=== PATIENT | male | born 1935 | race Caucasian/White ===

== ENCOUNTER 2020-02-04 10:05 | Inpatient (IN) | payer MEDICARE, MEDICAID ==
[~2020-02-04] VITALS: Ht 182.9 cm; Wt 66.2 kg
[~2020-02-04 10:05] MED LIST: ALBU90AE INH; DILT60TA35 PO; HYDR-4135 MT; INSU100I28 SQ; LEVO500T2 PO; RISP05 MT
[2020-02-04] MEDS ORDERED: DEXTROSE 50% WATER 50ML SYRINGE IV ONE (11:00)
[2020-02-04 11:30] LABS: HEMATOCRIT. 24.3 % (42.0-52.0); HEMOGLOBIN. 8.3 g/dL (14.0-18.0); MEAN CORPUSCULAR HEMOGLOBIN 30.9 pg (28.0-32.0); MEAN CORPUSCULAR VOLUME 90.6 fL (80.0-94.0); MEAN PLATELET VOLUME 9.9 fl (7.4-10.4); PLATELET 107 x1000/uL (130-400); RED BLOOD CELL COUNT 2.69 mill/uL (4.7-6.1); RED CELL DISTRIBUTION WIDTH 17.8 % (11.6-14.6)
[2020-02-04 11:33] LABS: CLARITY URINE TURBID (CLEAR); COLOR URINE YELLOW (YELLOW); KETONES URINE NEGATIVE (NEGATIVE); LEUKOCYTE ESTERASE URINE 3+ (NEGATIVE); NITRITE URINE POSITIVE (NEGATIVE); OCCULT BLOOD URINE 3+ (NEGATIVE); PH URINE 5.5 (4.5-8.0); PROTEIN URINE 3+ (NEGATIVE); SPECIFIC GRAVITY URINE 1.015 (1.005-1.030)
[2020-02-04 11:34] LABS: CHLORIDE 107 mEq/L (98-107)
[2020-02-04] MEDS ORDERED: LORAZEPAM 2MG/ML CPJ ONE (11:37)
[2020-02-04 11:38] LABS: ETHANOL BLOOD < 10 mg/dL
[2020-02-04 11:45] LABS: PROTHROMBIN TIME 10.7 sec (9.6-11.0)
[2020-02-04] MEDS ORDERED: VANCOMYCIN 1 G PREMIX 200 ML IV ONE (12:00)
[2020-02-04] MEDS ORDERED: PIPERACILLIN/TAZ 3.375G PREMIX 50 ML IV ONE (12:00)
[2020-02-04] MEDS ORDERED: SODIUM CHLORIDE 0.9% 1000ML BAG (SEPSIS BOLUS) IV ONE (12:00)
[2020-02-04] MEDS ORDERED: DEXT 10% WATER 1,000 ML IV ONE (12:14)
[2020-02-04] MEDS ORDERED: IPRATROPIUM/ALBUTEROL 0.5-3(2.5)MG/3ML NEB NEB PRN (12:45)
[2020-02-04] MEDS ORDERED: HYDROCODONE/ACETAMINOPHEN 5/325MG TABLET PO PRN (12:45)
[2020-02-04] MEDS ORDERED: CLONIDINE 0.1MG TABLET PO PRN (12:45)
[2020-02-04] MEDS ORDERED: ACETAMINOPHEN 650MG SUPP PR PRN (12:45)
[2020-02-04] MEDS ORDERED: LORAZEPAM 2MG/ML CPJ IM ONE (12:45)
[2020-02-04] MEDS ORDERED: ACETAMINOPHEN 325MG TABLET PO PRN (12:45)
[2020-02-04] MEDS ORDERED: DOCUSATE SODIUM 100MG CAPSULE PO PRN (12:45)
[2020-02-04] MEDS ORDERED: GUAIFENESIN 200MG/10ML SUGAR FREE UDC PO PRN (12:45)
[2020-02-04] MEDS ORDERED: NA PHOS,M-B/NA PHOS,DI-BA ENEMA 118ML PR PRN (12:45)
[2020-02-04] MEDS ORDERED: MAGNESIUM/ALUMINUM HYDROXIDE/SIMETHICONE 30ML UDC PO PRN (12:45)
[2020-02-04] MEDS ORDERED: IPRATROPIUM/ALBUTEROL 0.5-3(2.5)MG/3ML NEB NEB SCH (12:45)
[2020-02-04] MEDS ORDERED: PIPERACILLIN/TAZOBACTAM 2.25 G in DEXTROSE 5% WATER 50 ML IV SCH (12:45)
[2020-02-04] MEDS ORDERED: DIPHENHYDRAMINE 50MG/ML VIAL IV PRN (12:45)
[2020-02-04] MEDS ORDERED: DEXTROSE 50% WATER 50ML SYRINGE IV PRN (12:45)
[2020-02-04 12:47] LABS: PLATELET ESTIMATE SLIGHTLY DECREASED
[2020-02-04] MEDS: BLOOD SUGAR DIAGNOSTIC STRIP TEST SCH ×4 (13:26→21:04)
[2020-02-04 13:40] LABS: BG BASE EXCESS -8.1 mmol/L (-2.0-2.0); BG FRACTION INSPIRED OXYGEN 21; BG HCO3 ACT 19.2 mmol/L (22.0-26.0); BG PH 7.221 (7.350-7.450); BG SAMPLE SITE RIGHT RADIAL; BG TOTAL HEMOGLOBIN 8.8 g/dL (12.0-18.0); BG VENT MODE ROOM AIR
[2020-02-04 15:05] LABS: *AMPHETAMINES SCREEN URINE NEGATIVE (NEGATIVE); *BARBITURATES SCREEN URINE NEGATIVE (NEGATIVE); *BENZODIAZEPINES SCREEN URINE NEGATIVE (NEGATIVE); *COCAINE SCREEN URINE NEGATIVE (NEGATIVE); METHADONE URINE SCREEN NEGATIVE (NEGATIVE); OPIATES URINE SCREEN NEGATIVE (NEGATIVE)
[2020-02-04 15:06] LABS: CANNABINOID URINE SCREEN NEGATIVE (NEGATIVE); PHENCYCLIDINE URINE SCREEN NEGATIVE (NEGATIVE)
[2020-02-04 15:55] VITALS: BP 151/78
[2020-02-04] MEDS ORDERED: DEXTROSE 10% WATER 500 ML IV ONE (16:00)
[2020-02-04 18:00] VITALS: BP 159/89
[2020-02-04] MEDS: PIPERACILLIN/TAZOBACTAM 3.375 G in DEXT 5% WATER 100 ML IV SCH (18:19)
[2020-02-04 20:00] VITALS: BP 143/81
[2020-02-04] MEDS: IPRATROPIUM/ALBUTEROL 0.5-3(2.5)MG/3ML NEB NEB SCH (20:36)
[2020-02-04] MEDS: FAMOTIDINE 20MG TABLET PO SCH (21:00)
[2020-02-04 22:00] VITALS: BP 118/59
[2020-02-05] VITALS (12 sets, daily range): BP systolic 101–159; BP diastolic 64–86
[2020-02-05] MEDS: DEXTROSE 50% WATER 50ML SYRINGE IV PRN ×3 (00:47→16:44)
[2020-02-05] MEDS: PIPERACILLIN/TAZOBACTAM 3.375 G in DEXT 5% WATER 100 ML IV SCH ×3 (01:47→18:26)
[2020-02-05] MEDS: IPRATROPIUM/ALBUTEROL 0.5-3(2.5)MG/3ML NEB NEB SCH ×4 (02:11→22:29)
[2020-02-05] MEDS ORDERED: DEXT 10% WATER 1,000 ML IV SCH (03:00)
[2020-02-05] MEDS: BLOOD SUGAR DIAGNOSTIC STRIP TEST SCH ×5 (04:10→20:17)
[2020-02-05] MEDS ORDERED: TRAZ-251 MT (05:02)
[2020-02-05] MEDS ORDERED: DIVA-73 MT (05:02)
[2020-02-05] MEDS ORDERED: DONE5TAB26 MT (05:02)
[2020-02-05] MEDS ORDERED: ATOR10TA69 MT (05:02)
[2020-02-05] MEDS ORDERED: METO-396 MT (05:02)
[2020-02-05 06:31] LABS: HEMATOCRIT. 21.8 % (42.0-52.0); HEMOGLOBIN. 7.5 g/dL (14.0-18.0); MEAN CORPUSCULAR HEMOGLOBIN 30.9 pg (28.0-32.0); MEAN CORPUSCULAR VOLUME 90.5 fL (80.0-94.0); MEAN PLATELET VOLUME 8.8 fl (7.4-10.4); PLATELET 85 x1000/uL (130-400); RED BLOOD CELL COUNT 2.41 mill/uL (4.7-6.1); RED CELL DISTRIBUTION WIDTH 17.4 % (11.6-14.6)
[2020-02-05 06:51] LABS: CHLORIDE 110 mEq/L (98-107)
[2020-02-05] MEDS: DEXT 10% WATER 1,000 ML IV SCH ×2 (07:15→16:43)
[2020-02-05 10:01] LABS: PLATELET ESTIMATE DECREASED
[2020-02-05 11:20] LABS: BG BASE EXCESS -12.3 mmol/L (-2.0-2.0); BG CARBOXYHEMOGLOBIN 0.1 % (0.5-1.5); BG DEOXYHEMOGLOBIN 2.3 % (0.0-5.0); BG FRACTION INSPIRED OXYGEN 21; BG HCO3 ACT 13.3 mmol/L (22.0-26.0); BG METHEMOGLOBIN 0.5 % (0.0-1.5); BG OXYGEN SATURATION 97.7 % (92.0-98.5); BG OXYHEMOGLOBIN 97.1 % (94.0-97.0); BG PO2 121.3 mmHg (75.0-100.0); BG SAMPLE SITE RIGHT RADIAL; BG TOTAL HEMOGLOBIN 7.2 g/dL (12.0-18.0); BG VENT MODE ROOM AIR
[2020-02-05] MEDS ORDERED: KCL 20MEQ/100ML PREMIX 100 ML IV SCH (12:00)
[2020-02-05] MEDS ORDERED: SODIUM BICARBONATE 8.4% 1 MEQ/ML 50ML SYR IV SCH (15:00)
[2020-02-05 17:23] LABS: BG BASE EXCESS -6.3 mmol/L (-2.0-2.0); BG CARBOXYHEMOGLOBIN 0.1 % (0.5-1.5); BG DEOXYHEMOGLOBIN 2.2 % (0.0-5.0); BG FRACTION INSPIRED OXYGEN 21; BG HCO3 ACT 19.2 mmol/L (22.0-26.0); BG METHEMOGLOBIN 0.3 % (0.0-1.5); BG OXYGEN SATURATION 97.8 % (92.0-98.5); BG OXYHEMOGLOBIN 97.4 % (94.0-97.0); BG PH 7.322 (7.350-7.450); BG SAMPLE SITE RIGHT RADIAL; BG TOTAL HEMOGLOBIN 7.7 g/dL (12.0-18.0); BG VENT MODE ROOM AIR
[2020-02-05] MEDS: FAMOTIDINE 20MG TABLET PO SCH (20:17)
[2020-02-05] MEDS ORDERED: LINEZOLID 600 MG PREMIX 300 ML IV SCH (21:00)
[2020-02-06] VITALS: BP 132/75
[2020-02-06] MEDS: LINEZOLID 600 MG PREMIX 300 ML IV SCH ×2 (01:00→13:45)
[2020-02-06] MEDS: PIPERACILLIN/TAZOBACTAM 3.375 G in DEXT 5% WATER 100 ML IV SCH ×3 (01:09→18:42)
[2020-02-06] MEDS: DEXT 10% WATER 1,000 ML IV SCH ×3 (02:08→23:26)
[2020-02-06] MEDS: DEXTROSE 50% WATER 50ML SYRINGE IV PRN ×2 (03:43→09:14)
[2020-02-06 04:00] VITALS: BP 140/72
[2020-02-06] MEDS: BLOOD SUGAR DIAGNOSTIC STRIP TEST SCH ×6 (04:47→20:02)
[2020-02-06] MEDS: LORAZEPAM 0.5MG TABLET PO PRN ×2 (04:49→22:23)
[2020-02-06 08:00] VITALS: BP 134/77
[2020-02-06 11:03] LABS: BASOPHILS % 0.4 % (0.0-2.0); EOSINOPHILS % 1.6 % (0.0-5.0); HEMATOCRIT. 21.9 % (42.0-52.0); HEMOGLOBIN. 7.5 g/dL (14.0-18.0); LYMPHOCYTES % 9.1 % (20.0-50.0); MEAN CORPUSCULAR HEMOGLOBIN 30.5 pg (28.0-32.0); MEAN CORPUSCULAR VOLUME 89.3 fL (80.0-94.0); MEAN PLATELET VOLUME 8.7 fl (7.4-10.4); MONOCYTES % 10.7 % (2.0-8.0); NEUTROPHILS % 78.2 % (40.0-76.0); PLATELET 140 x1000/uL (130-400); RED BLOOD CELL COUNT 2.45 mill/uL (4.7-6.1); RED CELL DISTRIBUTION WIDTH 17.8 % (11.6-14.6)
[2020-02-06 11:11] LABS: CHLORIDE 104 mEq/L (98-107)
[2020-02-06 16:00] VITALS: BP 152/78
[2020-02-06 20:00] VITALS: BP 181/81
[2020-02-06] MEDS: FAMOTIDINE 20MG TABLET PO SCH (20:02)
[2020-02-06] MEDS: INSULIN LISPRO 100 UNITS/ML SUBCUT SCH (21:30)
[2020-02-07] VITALS: BP 166/87
[2020-02-07] MEDS: BLOOD SUGAR DIAGNOSTIC STRIP TEST SCH ×7 (00:27→23:40)
[2020-02-07] MEDS ORDERED: HYDRALAZINE HCL 50MG TABLET PO SCH (00:45)
[2020-02-07] MEDS: DEXT 10% WATER 1,000 ML IV SCH (02:00)
[2020-02-07] MEDS: PIPERACILLIN/TAZOBACTAM 3.375 G in DEXT 5% WATER 100 ML IV SCH ×4 (02:59→17:16)
[2020-02-07] MEDS: LORAZEPAM 0.5MG TABLET PO PRN ×3 (03:49→23:56)
[2020-02-07 04:00] VITALS: BP 160/63
[2020-02-07] MEDS: INSULIN LISPRO 100 UNITS/ML SUBCUT SCH ×6 (04:00→20:00)
[2020-02-07] MEDS: DEXTROSE 50% WATER 50ML SYRINGE IV PRN (04:19)
[2020-02-07 08:12] VITALS: BP 144/92
[2020-02-07] MEDS: DILTIAZEM HCL 30MG TABLET PO SCH ×3 (11:18→21:12)
[2020-02-07 12:10] VITALS: BP 150/64
[2020-02-07 16:08] VITALS: BP 158/90
[2020-02-07 20:00] VITALS: BP 159/81
[2020-02-07] MEDS: FAMOTIDINE 20MG TABLET PO SCH (21:11)
[2020-02-08] VITALS (7 sets, daily range): BP systolic 128–173; BP diastolic 69–102
[2020-02-08] MEDS: DEXT 10% WATER 1,000 ML IV SCH (01:57)
[2020-02-08] MEDS: PIPERACILLIN/TAZOBACTAM 2.25 G in DEXTROSE 5% WATER 50 ML IV SCH ×3 (01:57→17:42)
[2020-02-08] MEDS: INSULIN LISPRO 100 UNITS/ML SUBCUT SCH ×5 (04:00→16:00)
[2020-02-08] MEDS: BLOOD SUGAR DIAGNOSTIC STRIP TEST SCH ×4 (04:23→16:25)
[2020-02-08 06:55] LABS: BASOPHILS % 0.6 % (0.0-2.0); EOSINOPHILS % 0.8 % (0.0-5.0); HEMATOCRIT. 26.3 % (42.0-52.0); LYMPHOCYTES % 7.6 % (20.0-50.0); MEAN CORPUSCULAR HEMOGLOBIN 30.3 pg (28.0-32.0); MEAN CORPUSCULAR VOLUME 88.1 fL (80.0-94.0); MEAN PLATELET VOLUME 8.9 fl (7.4-10.4); MONOCYTES % 6.7 % (2.0-8.0); NEUTROPHILS % 84.3 % (40.0-76.0); PLATELET 133 x1000/uL (130-400); RED BLOOD CELL COUNT 2.99 mill/uL (4.7-6.1); RED CELL DISTRIBUTION WIDTH 17.2 % (11.6-14.6)
[2020-02-08] MEDS: IPRATROPIUM/ALBUTEROL 0.5-3(2.5)MG/3ML NEB NEB SCH ×2 (09:45→14:30)
[2020-02-08] MEDS: DILTIAZEM HCL 30MG TABLET PO SCH (13:08)
[2020-02-08] MEDS ORDERED: DONEPEZIL HCL 5MG TABLET PO SCH (16:00)
[2020-02-08] MEDS ORDERED: RISPERIDONE 0.5MG TABLET PO SCH (17:00)
== END 2020-02-08 20:23 | DRG 871 ==
LOC: ER 10:25 → UNDOADMIN 12:15 → 3WST 12:15 → EDBEDREQ 12:22 → EDBEDREQSVC 12:22 → EDBEDREQTM 12:22 → CANRESERV 13:26 → ENRESERV 13:26 → EDBEDREQ 13:50 → EDBEDREQSVC 13:50 → CANRESERV 14:10 → ENRESERV 14:10 → 3WST 02-06 00:16 → 7EST 02-06 00:16 → 5WST 02-07 19:51 → 7EST 02-07 19:51 → 5WST 02-07 19:55
PROVIDERS: ADMIT Internal Medicine; ATTEND Internal Medicine
DX: A41.9 Sepsis, unspecified organism (principal); G93.41 Metabolic encephalopathy; J18.9 Pneumonia, unspecified organism; J96.90 Respiratory failure, unspecified, unspecified whether with hypoxia or hypercapnia; D61.818 Other pancytopenia; E87.1 Hypo-osmolality and hyponatremia; N39.0 Urinary tract infection, site not specified; E87.2 Acidosis; R18.8 Other ascites; C34.90 Malignant neoplasm of unspecified part of unspecified bronchus or lung; E11.649 Type 2 diabetes mellitus with hypoglycemia without coma; E11.22 Type 2 diabetes mellitus with diabetic chronic kidney disease; F03.90 Unspecified dementia, unspecified severity, without behavioral disturbance, psychotic disturbance, mood disturbance, and anxiety; K76.0 Fatty (change of) liver, not elsewhere classified; N18.9 Chronic kidney disease, unspecified; E87.6 Hypokalemia; R91.8 Other nonspecific abnormal finding of lung field; R16.1 Splenomegaly, not elsewhere classified; I48.91 Unspecified atrial fibrillation; I48.0 Paroxysmal atrial fibrillation; Z79.4 Long term (current) use of insulin; Z79.899 Other long term (current) drug therapy; G40.909 Epilepsy, unspecified, not intractable, without status epilepticus; Z11.59 Encounter for screening for other viral diseases
CPT/HCPCS: 36415; 36600; 71045; 74176; 80048; 80053; 80305; 80320; 81003; 82140; 82375; 82805; 82962; 83540; 83550; 83605; 83615; 83880; 84145; 84484; 85025; 85044; 85379; 86850; 86900; 87077; 87635; 87804; 92610; 93005; 94640; 96365; 96368; 96372; 97162; 97164; 99291; J1815; J2020; J2060; J2543; J3370; J3480; J3490; J7030; J7060; G0480